=== PATIENT | male | born 1970 | race African-American/Black ===

== ENCOUNTER 2019-05-31 17:56 | Emergency (ER) | payer MEDICAID ==
[~2019-05-31] VITALS: Ht 188 cm; Wt 142.9 kg
[2019-05-31 18:00] VITALS: BP 128/87
--- NOTE | 2019-05-31 18:00 | NUR ---
ED Nurse Note: Patient GAIL RA #[id number] from home d/t slip and fall 15 min ago. Pt reports right knee injury. Reports pain rated at 9/10. Patient AxO x 4, no s/s of acute distress.
--- NOTE | 2019-05-31 18:03 | Emergency Room Report ---
History of Present Illness General Chief Complaint: Multiple Trauma/Fall Source: Patient, EMS Present Illness HPI 48-year-old male presents with right knee pain prior to arrival he reports slipping on some soda he endorses that his right kneecap shifted over medially and then spontaneously relocated endorses pain with movement only with rest severity is moderate, intermittent he denies his right knee dislocating patient presents for evaluation. Allergies: Coded Allergies: No Known Allergies (Unverified , 05/31/19) Patient History Past Medical History: see triage record Reviewed Nursing Documentation: PMH: Agreed; PSxH: Agreed Nursing Documentation-PMH Past Medical History: No Stated History Review of Systems All Other Systems: negative except mentioned in HPI Physical Exam Vital Signs Date Time Temp Pulse Resp B/P (MAP) Pulse Ox O2 Delivery O2 Flow Rate FiO2 05/31/19 17:50 98.6 100 18 128/87 (101) 96 Room Air General Appearance: well appearing, no apparent distress Head: normocephalic, atraumatic ENT: hearing grossly normal, normal voice Neck: full range of motion, supple Respiratory: no respiratory distress, speaking full sentences Musculoskeletal: other - Right lower extremity: 2+ PT DP, fires EHL, cap refill less than 3 seconds, right knee tender to palpation along the patella anterior posterior drawer negative, valgus varus stress negative no evidence of ligamental injury Neurologic: alert, normal gait Psychiatric: mood/affect normal Skin: no rash Medical Decision Making Diagnostic Impression: Primary Impression: Patellar dislocation Qualified Codes: S83.004A - Unspecified dislocation of right patella, initial encounter ER Course 48-year-old male most likely with a patellar dislocation that has resolved no evidence of knee dislocation pulses intact patient denies right knee dislocating he states the top part of his knee shifted over medially most likely a patellar dislocation that spontaneously reduced Patient will follow-up with orthopedic doctor disposition home with return cautions follow-up with PCP crutches were provided knee immobilizer was provided Other X-Ray Diagnostic Results Other X-Ray Diagnostic Results : X-Ray ordered: Right Knee # of Views/Limited Vs Complete: 2 View Indication: Pain EP Interpretation: Yes Interpretation: no dislocation, no fractures Impression: No acute disease Electronically Signed by: Esteban Ernst MD Last Vital Signs Date Time Temp Pulse Resp B/P (MAP) Pulse Ox O2 Delivery O2 Flow Rate FiO2 05/31/19 17:50 98.6 100 18 128/87 (101) 96 Room Air Disposition: HOME, SELF-CARE Condition: Stable Scripts Ibuprofen* (MOTRIN*) 600 Mg Tablet 600 MG ORAL Q8H PRN for For Pain, #30 TAB 0 Refills Prov: Esteban Ernst MD 05/31/19 Referrals: [facility] Patient Instructions: Patellar Dislocation, [id number] Additional Instructions: The patient was provided with discharge instructions, notified to follow-up with a primary care doctor and or specialist in the next 24-48 hours, and to return to the ED if they have worsening of their symptoms. Please note that this report is being documented using Vinted technology. This can lead to erroneous entry secondary to incorrect interpretation by the dictating instrument. FOLLOW-UP WITH ORTHO Esteban Gregory MD May 31, 2019 18:03
[2019-05-31] MEDS ORDERED: Ketorolac 30mg Inj IM ONE (19:00)
[2019-05-31] MEDS ORDERED: HYDROcodone/Acetamin 5/325 tab ORAL ONE (19:00)
[2019-05-31] MEDS ORDERED: IBUPROFEN600 MG ORAL (19:31)
[2019-05-31 19:50] VITALS: BP 125/79
--- NOTE | 2019-05-31 19:50 | NUR ---
ED Nurse Note: Pt cleared by ERMD for discharge. DC instructions/prescription was given and explained to pt and verbalized understanding of teachings. All medical deviecs such as ID band removed. Pt is AAO x4, ambulatory and left with all personal belongings. Crutches was provided. Pt is taking an uber going home.
--- NOTE | 2019-06-02 11:18 | Diagnostic Imaging Report ---
Indication: Knee pain/injury 2 views of the right knee were obtained. Findings: The area of the patella tendon is abnormal and ill-defined. There is also patella wilfred. Findings likely indicate a injury to the patella tendon or rupture. There is opacification of the suprapatellar pouch and a faint fat fluid level may be present. The tibial tuberosity shows a some fragmentation. This single ossicle seen and appears well corticated indicating this may be incidental and not indicative of an acute injury. The femur and tibia appear intact. The fibula appears intact. Alignment is normal. IMPRESSION: Good evidence for significant patellar tendon injury or rupture. Patella wilfred noted. Joint effusion. Question of lipohemarthrosis which may be a sign of an occult fracture
== END 2019-05-31 19:50 | disposition home or self-care (01) ==
LOC: EDBD 17:56 → EMR 18:24 → EDBD 18:24 → EMR 19:50
DX: S43.004A Unspecified dislocation of right shoulder joint, initial encounter (principal); W01.0XXA Fall on same level from slipping, tripping and stumbling without subsequent striking against object, initial encounter; Y93.01 Activity, walking, marching and hiking; Y92.9 Unspecified place or not applicable
CPT/HCPCS: 73560; 96372; J1885; Z7502; 99283

== ENCOUNTER 2020-05-24 13:18 | Outpatient (CLI) | payer MEDICAID ==
[~2020-05-24] VITALS: Ht 190.5 cm; Wt 138.8 kg
[~2020-05-24 13:18] MED LIST: IBUPROFEN600 MG ORAL
[2020-05-24 13:48] VITALS: BP 114/76
[2020-05-24] MEDS ORDERED: OXYCODONE HCL10 MG ORAL (15:16)
[2020-05-24] MEDS ORDERED: ASPIRIN EC81 MG ORAL (15:16)
[2020-05-24] MEDS ORDERED: OMEPRAZOLE40 M1 ORAL (15:16)
--- NOTE | 2020-05-24 15:59 | Consultation ---
DATE OF CONSULTATION: 05/24/2020 GASTROENTEROLOGY CONSULTATION CONSULTING PHYSICIAN: Prashanth Barba MD. CHIEF COMPLAINT: Referral for chronic GERD and screening colonoscopy evaluation. PAST MEDICAL HISTORY: 1. Chronic GERD. 2. Arthritis. 3. Colonic polyps. PAST SURGICAL HISTORY: History of tracheostomy, . MEDICATIONS: Please see medication reconciliation list. FAMILY HISTORY: Father had diabetes. Mother had breast cancer. SOCIAL HISTORY: The patient drinks alcohol and smokes cigarettes about half a pack per day. No IV drug abuse. ALLERGIES: No known drug allergies. REVIEW OF SYSTEMS: Positive for GERD. PHYSICAL EXAMINATION: VITAL SIGNS: Temperature is 98.3, blood pressure is 114/76, pulse is 108, respirations 20. Height is 6 feet, weight is 306. HEENT: Normocephalic and atraumatic. Sclerae are anicteric. NECK: Supple. No evidence of obvious lymphadenopathy. CARDIOVASCULAR: Regular rate and rhythm. Plus S1, S2. LUNGS: Clear to auscultation bilaterally. ABDOMEN: Soft, nontender. No rebound. No guarding. No peritoneal sign. EXTREMITIES: No cyanosis, no clubbing, no edema. ASSESSMENT AND PLAN: This is a 49-year-old male with chronic GERD, not responding to omeprazole 40 mg p.o. daily, still having night symptoms with acid reflux. Also having history of colonic polyps five years ago. Needs repeat colonoscopy. Plan to perform EGD and colonoscopy. Prashanth Barba M.D. DR: ARMANDO JOB#: [id number] CC:
== END 2020-05-24 15:22 | disposition home or self-care (01) ==
LOC: PAN 13:18
DX: K21.9 Gastro-esophageal reflux disease without esophagitis (principal); M19.90 Unspecified osteoarthritis, unspecified site; Z86.010 Personal history of colon polyps; F17.210 Nicotine dependence, cigarettes, uncomplicated
CPT/HCPCS: 99203